=== PATIENT | female | born 1950 | race Caucasian/White ===

== ENCOUNTER 2020-09-12 07:13 | Outpatient (REF) | payer MEDICARE, SELFPAY | END 2020-09-12 07:14 | disposition home or self-care (01) | LOC: HO.LAB 07:13 | PROVIDERS: Visit Provider Internal Medicine | DX: Z20.828 Contact with and (suspected) exposure to other viral communicable diseases (principal) | CPT/HCPCS: C9803; U0003 ==

== ENCOUNTER 2025-07-11 10:00 | Outpatient (RCR) | payer OTHER, MEDICARE, SELFPAY | END 2025-07-15 10:16 | disposition home or self-care (01) | LOC: HO.PT 10:00 | PROVIDERS: PCP Internal Medicine; Visit Provider Internal Medicine | DX: S82.90XD Unspecified fracture of unspecified lower leg, subsequent encounter for closed fracture with routine healing (principal); V89.2XXD Person injured in unspecified motor-vehicle accident, traffic, subsequent encounter | CPT/HCPCS: 97110; 97112; 97116; 97162; 97530 ==

== ENCOUNTER 2025-08-08 11:16 | Outpatient (RCR) | payer MEDICARE, SELFPAY | END 2025-09-11 13:28 | disposition home or self-care (01) | LOC: HO.OTS 11:16 | PROVIDERS: Visit Provider Physician Assistant | DX: R20.0 Anesthesia of skin (principal); I63.81 Other cerebral infarction due to occlusion or stenosis of small artery | CPT/HCPCS: 97110; 97165; 97530 ==